=== PATIENT | female | born 1970 | race Asian ===

== ENCOUNTER 2016-11-24 16:24 | Emergency (ER) | payer SELFPAY ==
[~2016-11-24] VITALS: Ht 152.4 cm; Wt 47.6 kg
--- NOTE | 2016-11-24 16:28 | NUR ---
AAOX3, BIBRA C/O RFA LACERATION FROM A BROKEN GLASS. GAUZE NOTED ON THE SITE. CMS WNL. SKIN IS WARM AND DRY. WILL CONTINUOUSLY MONITOR THE PATIENT. AWAITING MD FOR EVAL.
--- NOTE | 2016-11-24 16:40 | NUR ---
XRAY IN PROGRESS AT BS.
[2016-11-24] MEDS ORDERED: TDAP [DIPH/PERTUSSIS/TET] 0.5 ML VIAL IM ONE ×2 (16:50→17:00)
--- NOTE | 2016-11-24 17:40 | NUR ---
YANNICK EMT BS FOR WOUND CARE, SPLINT AND DRESSING. PATIENT TOLERATED THE PROCEDURE.
[2016-11-24 17:43] VITALS: BP 128/76
== END 2016-11-24 17:44 | disposition home or self-care (01) ==
LOC: ER 16:26
DX: S61.511A Laceration without foreign body of right wrist, initial encounter (principal); W25.XXXA Contact with sharp glass, initial encounter; Y93.89 Activity, other specified; Y92.89 Other specified places as the place of occurrence of the external cause; Y99.8 Other external cause status
CPT/HCPCS: 12002; 29125; 73110; 90471; 90715; 99284; A4606; A6253; A6402; A6403; Z7610

== ENCOUNTER 2016-11-27 09:56 | Emergency (ER) | payer MEDICAID ==
[~2016-11-27] VITALS: Ht 152.4 cm; Wt 46.7 kg
[2016-11-27 09:56] VITALS: BP 108/87
== END 2016-11-27 10:16 | disposition home or self-care (01) ==
LOC: ER 09:58
DX: S61.511D Laceration without foreign body of right wrist, subsequent encounter (principal)
CPT/HCPCS: A4606; A6402; A6403; Z7502; Z7610

== ENCOUNTER 2016-12-04 09:25 | Emergency (ER) | payer MEDICAID ==
[~2016-12-04] VITALS: Ht 152.4 cm; Wt 46.7 kg
[2016-12-04 09:25] VITALS: BP 110/85
== END 2016-12-04 09:58 | disposition home or self-care (01) ==
LOC: ER 09:27
DX: S61.511D Laceration without foreign body of right wrist, subsequent encounter (principal); Z48.00 Encounter for change or removal of nonsurgical wound dressing
CPT/HCPCS: 29125; 99283; A4606; A6402; A6403; Z7610

== ENCOUNTER 2016-12-07 09:20 | Emergency (ER) | payer MEDICAID ==
[~2016-12-07] VITALS: Ht 152.4 cm; Wt 47.6 kg
[2016-12-07 09:25] VITALS: BP 111/76
== END 2016-12-07 10:27 | disposition home or self-care (01) ==
LOC: ER 09:22
DX: S40.021A Contusion of right upper arm, initial encounter (principal); S41.112D Laceration without foreign body of left upper arm, subsequent encounter; X58.XXXD Exposure to other specified factors, subsequent encounter
CPT/HCPCS: 10140; 29125; 99284; A4606; Z7610